=== PATIENT | female | born 1985 | race Caucasian/White ===

== ENCOUNTER 2019-03-05 10:01 | Emergency (ER) | payer OTHER ==
[~2019-03-05] VITALS: Ht 167.6 cm; Wt 65.0 kg
[2019-03-05 10:09] VITALS: BP 130/79; PULSE 110; RESP 20; Ht 167.6 cm; Wt 65.0 kg
[2019-03-05] MEDS ORDERED: KETOROLAC 60 MG INJ IM STA (10:27)
[2019-03-05] MEDS ORDERED: ONDANSETRON (ODT) 4 MG TAB ODT STA (10:27)
[2019-03-05] MEDS ORDERED: HYDROCODONE/APAP (5/325) TAB PO ONE (10:30)
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
[2019-03-05] MEDS ORDERED: CYCL10TA7 PO (12:24)
[2019-03-05] MEDS ORDERED: NAPR-985 PO (12:24)
== END 2019-03-05 12:56 | disposition home or self-care (01) ==
LOC: FTE 10:01
DX: S80.02XA Contusion of left knee, initial encounter (principal); S79.912A Unspecified injury of left hip, initial encounter; R10.2 Pelvic and perineal pain; V49.40XA Driver injured in collision with unspecified motor vehicles in traffic accident, initial encounter
CPT/HCPCS: 72170; 73510; 73562; 81025; 96372; J1885; Z7502; Z7610